=== PATIENT | male | born 2005 | race Caucasian/White ===

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

== ENCOUNTER 2023-04-09 16:07 | Emergency (ER) | payer MEDICAID, OTHER ==
--- NOTE | 2023-04-09 16:09 | ERPHSYRPT ---
- History of Present Illness Time Seen by Provider: 04/09/23 16:09 Source: patient Exam Limitations: no limitations Physician History: This is a 17-year-old white male patient who presents with 2-day history of worsening sore throat. He has no known exposures to individuals similar symptoms. He has not had a fever. He denies chills. He denies cough. He denies chest pain and he denies shortness of breath. He has not used any treatment. Timing/Duration: gradual onset, days Severity: mild (2 days ago) ENT Location: throat Prearrival Treatment: no prearrival treatment Modifying Factors: Improves With: other (Swallowing hurts) Associated Symptoms: sore throat, No ear pain (R), No ear pain (L), No cough, No fever, No chills Allergies/Adverse Reactions: No Known Drug Allergies Allergy (Verified 09/24/20 17:08) Hx Tetanus, Diphtheria Vaccination/Date Given: Yes Hx Influenza Vaccination/Date Given: Yes Hx Pneumococcal Vaccination/Date Given: No Travel Risk - International Travel Have you traveled outside of the country in past 3 weeks: No - Coronavirus Screening Are you exhibiting any of the following symptoms?: No Close contact with a COVID-19 positive Pt in past 14-21 Days: No - Review of Systems Constitutional: No Symptoms Eyes: No Symptoms Ears, Nose, & Throat: Throat Pain Respiratory: No Symptoms Cardiac: No Symptoms (When swallowing) Abdominal/Gastrointestinal: No Symptoms Genitourinary Symptoms: No Symptoms Musculoskeletal: No Symptoms Skin: No Symptoms Neurological: No Symptoms Psychological: No Symptoms Endocrine: No Symptoms Hematologic/Lymphatic: No Symptoms Immunological/Allergic: No Symptoms All Other Systems: Reviewed and Negative - Past Medical History Pertinent Past Medical History: No Neurological History: No Pertinent History ENT History: No Pertinent History Cardiac History: No Pertinent History Respiratory History: No Pertinent History GI Medical History: No Pertinent History - Past Surgical History Past Surgical History: No - Social History Smoking Status: Never smoker Exposure to second hand smoke: Yes Drug Use: none Patient Lives Alone: No - Nursing Vital Signs Nursing Vital Signs: Initial Vital Signs Temperature 98.1 F 04/09/23 16:10 Pulse Rate 77 04/09/23 16:10 Respiratory Rate 20 04/09/23 16:10 Blood Pressure 121/73 04/09/23 16:10 O2 Sat by Pulse Oximetry 97 04/09/23 16:10 Pain Scale Pain Intensity 6 - Physical Exam General Appearance: no apparent distress, alert Eye Exam: bilateral eye: normal inspection, PERRL, EOMI Ear Exam: bilateral ear: auricle normal Nasal Exam: normal inspection Throat Exam: moist mucus membranes, pharynx swelling (Mild with mild redness present), uvula swelling (Mild with mild redness) Neck Exam: normal inspection, non-tender, supple, full range of motion Cardiovascular/Respiratory Exam: chest non-tender, normal breath sounds, regular rate/rhythm, heart sounds normal, no respiratory distress Abdominal Exam: non-tender, spleenomegaly Neurologic Exam: alert, oriented x 3, cooperative, normal mood/affect, nml cerebellar function, nml station & gait, sensation nml Skin Exam: normal color, warm, dry SpO2 Interpretation: normal O2 Delivery: Room Air - Course Nursing assessment & vital signs reviewed: Yes Lab/Rad Data: Laboratory Results 04/09/23 Range/Units 16:28 Influenza Type A Ag NEGATIVE (NEGATIVE) Influenza Type B Ag NEGATIVE (NEGATIVE) RSV (PCR) NEGATIVE (NEGATIVE) SARS-CoV-2 (PCR) NEGATIVE (NEGATIVE) Group A Strep Antibody DETECTED (NEGATIVE) - Progress Progress: improved, re-examined Progress Note: 04/09/23 16:38 This patient's medical issue is 1 of low complexity. The level complexity and the work-up performed is based on review of the patient's past medical history, review of the patient's medication list, review of the patient's drug allergy list, history of present illness and physical findings on examination. The work-up in this patient will be viral swabs as well as a swab for rapid group A strep study. Patient will be given instructions to drink plenty of fluids and use Tylenol and ibuprofen for pain and fever control. If the group A strep test returns positive we will add antibiotics to the regimen. I will add prednisone 5 mg orally 3 times a day for the next 4 days even if the group A strep test is negative. 04/09/23 16:56 The viral studies are pending. The patient has positive group a strep detected Counseled pt/family regarding: lab results, diagnosis, need for follow-up Medical Desision Making - Diagnostic Testing Diagnostic test were ordered, analyzed, and reviewed by me: Yes - Risk of complications The pt has a mod risk of morbidity or mortality based on: Need for prescription drug management - Departure Departure Disposition: Home Clinical Impression: Strep pharyngitis Condition: Stable Critical Care Time: No Referrals: DOCTOR,NO FAMILY [Primary Care Provider] - Follow up/PCP as directed Additional Instructions: Drink plenty of fluids. Take your medication as prescribed. Use Tylenol and ibuprofen for pain and fever control. Follow-up with your primary care provider for further evaluation management and for persistent symptoms. Prescriptions: Amoxicillin 500 mg Cap [Amoxil 500 mg] 500 mg PO TID #30 cap Prednisone 5 mg [Deltasone 5 mg] 5 mg PO TID #12 tablet
[2023-04-09 16:16] VITALS: TEMP 98.1
[2023-04-09 16:53] LABS: Group A Strep DETECTED (NEGATIVE)
[2023-04-09 17:06] LABS: INFLUENZA A NEGATIVE (NEGATIVE); INFLUENZA B NEGATIVE (NEGATIVE); RESPIRATORY SYNCTIAL VIRUS NEGATIVE (NEGATIVE); SARS-CoV-2 Xpert Express NEGATIVE (NEGATIVE)
[2023-04-09 17:29] VITALS: BP 118/68; PULSE 73; RESP 18; O2SAT 98
== END 2023-04-09 17:32 | disposition home or self-care (01) ==
LOC: ED 16:07
DX: J02.0 Streptococcal pharyngitis (principal); Z79.52 Long term (current) use of systemic steroids
CPT/HCPCS: 0241U; 87651; 99282

== ENCOUNTER 2024-09-12 21:31 | Emergency (ER) | payer OTHER ==
[2024-09-12 21:37] VITALS: TEMP 98.4
--- NOTE | 2024-09-12 21:38 | ERPHSYRPT ---
- History of Present Illness Time Seen by Provider: 09/12/24 21:38 Source: patient, family Exam Limitations: no limitations Physician History: This is a 18-year-old white male patient who [facility] [email or web address] per his report and there was a plastic item in the ice cream that cut the inner buccal mucosa on the right side as well as abrasion the lateral aspect of the right side of his tongue. He had actually choked on a plastic item and was able to expel it from his oral cavity Timing/Duration: abrupt onset Severity: mild ENT Location: mouth Prearrival Treatment: no prearrival treatment Modifying Factors: Improves With: activity Associated Symptoms: sore throat, other (Pain in the right lateral aspect of the tongue and the right inner buccal mucosa) Allergies/Adverse Reactions: No Known Drug Allergies Allergy (Verified 09/12/24 21:37) Home Medications: No Reportable Medications [No Reported Medications] 09/12/24 [History] Hx Tetanus, Diphtheria Vaccination/Date Given: Yes Hx Influenza Vaccination/Date Given: Yes Hx Pneumococcal Vaccination/Date Given: No Travel Risk - International Travel Have you traveled outside of the country in past 3 weeks: No - Emerging Infectious Disease Are you exhibiting symptoms associated with any current EIDs: No - Review of Systems Constitutional: No Symptoms Eyes: No Symptoms Ears, Nose, & Throat: Mouth Pain (Lateral aspect right side tongue and right inner buccal mucosa tenderness), Throat Pain Respiratory: No Symptoms Cardiac: No Symptoms Abdominal/Gastrointestinal: No Symptoms Genitourinary Symptoms: No Symptoms Musculoskeletal: No Symptoms Skin: No Symptoms Neurological: No Symptoms Psychological: No Symptoms Endocrine: No Symptoms Hematologic/Lymphatic: No Symptoms Immunological/Allergic: No Symptoms All Other Systems: Reviewed and Negative - Past Medical History Pertinent Past Medical History: No Neurological History: No Pertinent History ENT History: No Pertinent History Cardiac History: No Pertinent History Respiratory History: No Pertinent History GI Medical History: No Pertinent History - Past Surgical History Past Surgical History: No - Social History Smoking Status: Never smoker Exposure to second hand smoke: Yes Drug Use: none Patient Lives Alone: No - Nursing Vital Signs Nursing Vital Signs: Initial Vital Signs Temperature 98.4 F 09/12/24 21:36 Pulse Rate 87 09/12/24 21:36 Respiratory Rate 18 09/12/24 21:36 Blood Pressure 149/91 09/12/24 21:36 O2 Sat by Pulse Oximetry 99 01/03/25 21:36 Pain Scale Pain Intensity 8 - Physical Exam General Appearance: no apparent distress, alert, anxiety Eye Exam: bilateral eye: normal inspection, PERRL, EOMI Ear Exam: bilateral ear: auricle normal Nasal Exam: normal inspection Throat Exam: moist mucus membranes (Visible abrasions inner buccal mucosa right side. Faint abrasions right lateral tongue), No uvula swelling, No voice changes Neck Exam: normal inspection, non-tender, supple, full range of motion, trachea midline Cardiovascular/Respiratory Exam: chest non-tender, no respiratory distress Abdominal Exam: non-tender Neurologic Exam: alert, oriented x 3, cooperative, iron pourer II-XII nml as tested, nml cerebellar function, nml station & gait, sensation nml Skin Exam: normal color, warm, dry SpO2 Interpretation: normal SpO2: 99 O2 Delivery: Room Air - Course Nursing assessment & vital signs reviewed: Yes - Progress Progress: improved, pain not gone completely Progress Note: 09/12/24 21:48 My medical decision making and the assignment of low complexity to this patient's medical issue today is based on review of the patient's past medical history, review of the patient's medication list, review the patient drug allergy list, history present illness and physical findings on examination. The workup in this patient does not necessitate lab or radiographic studies. We will provide the patient with rinse gargle and spit viscous lidocaine for pain control. Differential diagnosis includes but is not limited to lingual abrasions and buccal mucosal abrasions Counseled pt/family regarding: diagnosis, need for follow-up Medical Desision Making - Independent Historian Additional History obtained from: Relative/friend - Diagnostic Testing Diagnostic test were ordered, analyzed, and reviewed by me: No - Risk of complications Minimal Risk: Minimal risk of morbidity - Departure Departure Disposition: Home Clinical Impression: Encounter for medical screening examination, Abrasion of buccal mucosa, Abrasion of tongue Condition: Stable Critical Care Time: No Referrals: DOCTOR,NO FAMILY [Primary Care Provider] - Follow up/PCP as directed Additional Instructions: Rinse gargle and spit using scope or other mouthwash. May also use Tylenol and ibuprofen for pain. Follow-up with your primary care provider on 09/15/2024, for further evaluation and management
[2024-09-12] MEDS ORDERED: XYLOCAINE VISCOUS 2% 15 ML CUP ONE (21:51)
[2024-09-12] MEDS: XYLOCAINE VISCOUS 2% 15 ML CUP PO ONE (21:59)
[2024-09-12 22:07] VITALS: BP 123/81; PULSE 83; RESP 16; O2SAT 98
== END 2024-09-12 22:21 | disposition home or self-care (01) ==
LOC: ED 21:31
DX: S00.512A Abrasion of oral cavity, initial encounter (principal); W26.9XXA Contact with unspecified sharp object(s), initial encounter; Y92.511 Restaurant or cafe as the place of occurrence of the external cause
CPT/HCPCS: 99281; A9270-GY

== ENCOUNTER 2025-04-05 21:17 | Emergency (ER) | payer OTHER ==
[2025-04-05 21:29] VITALS: TEMP 97; O2SAT 100
[2025-04-05] MEDS ORDERED: KEFLEX 500 MG ONE (21:42)
[2025-04-05] MEDS ORDERED: DELTASONE 20 MG ONE (21:42)
[2025-04-05] MEDS: DELTASONE 20 MG PO ONE (21:43)
[2025-04-05] MEDS: KEFLEX 500 MG PO ONE (21:43)
--- NOTE | 2025-04-05 21:43 | ERPHSYRPT ---
- History of Present Illness Time Seen by Provider: 04/05/25 21:35 Source: patient, cnc mechanic Patient Subjective Stated Complaint: c/o spider bite Triage Nursing Assessment: patient brought self to ED with c/o spider bite that occurred 30 minutes ago. patient stated he saw the spider but was unable to kill it. patient has a 6cm x 9cm reddenned area on the medial side of left calf. patient rates pain 4/10 at this time, gait steady, vitals wnl, patient doesn't appear to be in any distress at this time. Physician History: This is a 19-year-old white male patient who arrives 30 minutes after a "spider bite to the medial aspect of his left calf. Patient had something similar approximately 3 weeks ago he did capture the spider and it did look like a brown recluse. Today, he has healed the right lower extremity spider bite. 30 minutes ago, he did notice another spider bite him on the medial aspect of his left calve. He did not get a good look at the spider but it was different than the one from 3 weeks ago. The Keflex/prednisone regimen provided to him 3 weeks ago worked well for him. Timing/Duration: today Quality: burning Severity: mild Location: extremities (Left lower leg) Possible Causes: insect bite Associated Symptoms: denies symptoms Allergies/Adverse Reactions: No Known Drug Allergies Allergy (Verified 04/05/25 21:29) Hx Tetanus, Diphtheria Vaccination/Date Given: Yes Hx Influenza Vaccination/Date Given: Yes Hx Pneumococcal Vaccination/Date Given: No Travel Risk - International Travel Have you traveled outside of the country in past 3 weeks: No - Emerging Infectious Disease Are you exhibiting symptoms associated with any current EIDs: No - Review of Systems Constitutional: No Symptoms Eyes: No Symptoms Ears, Nose, & Throat: No Symptoms Respiratory: No Symptoms Cardiac: No Symptoms Abdominal/Gastrointestinal: No Symptoms Genitourinary Symptoms: No Symptoms Musculoskeletal: No Symptoms Skin: Cellulitis (Localized medial aspect left calf) Neurological: No Symptoms Psychological: No Symptoms Endocrine: No Symptoms Hematologic/Lymphatic: No Symptoms Immunological/Allergic: No Symptoms All Other Systems: Reviewed and Negative - Past Medical History Pertinent Past Medical History: No Neurological History: No Pertinent History ENT History: No Pertinent History Cardiac History: No Pertinent History Respiratory History: No Pertinent History Endocrine Medical History: No Pertinent History Musculoskeletal History: No Pertinent History GI Medical History: No Pertinent History History: No Pertinent History Psycho-Social History: No Pertinent History Male Reproductive Disorders: No Pertinent History - Past Surgical History Past Surgical History: No Neuro Surgical History: No Pertinent History Cardiac: No Pertinent History Respiratory: No Pertinent History Gastrointestinal: No Pertinent History Genitourinary: No Pertinent History Musculoskeletal: No Pertinent History Male Surgical History: No Pertinent History - Social History Smoking Status: Never smoker Exposure to second hand smoke: No Drug Use: none - Social Determinants of Health Will the patient participate in the screening: Yes Do you worry about a steady place to live?: No Do you have any problems with any of the following?: No known problems In the past 12 months,have you had to go without utilities?: No Transportation Issues: No Has anyone in your support network made you feel unsafe?: No Have you or anyone in your house had to go w/o enough food: No - Nursing Vital Signs Nursing Vital Signs: Initial Vital Signs Temperature 97 F 04/05/25 21:20 Pulse Rate 61 04/05/25 21:20 Respiratory Rate 18 04/05/25 21:20 Blood Pressure 139/86 04/05/25 21:20 O2 Sat by Pulse Oximetry 100 04/05/25 21:20 Pain Scale Pain Intensity 4 - Physical Exam General Appearance: no apparent distress, alert Eye Exam: PERRL/EOMI, eyes nml inspection Ears, Nose, Throat Exam: normal ENT inspection, moist mucous membranes Neck Exam: normal inspection, non-tender, supple, full range of motion Respiratory Exam: airway intact, No chest tenderness, No respiratory distress Cardiovascular Exam: regular rate/rhythm, normal heart sounds, normal peripheral pulses Gastrointestinal/Abdomen Exam: soft, normal bowel sounds, No tenderness Rectal Exam: not done Back Exam: normal inspection, normal range of motion, No CVA tenderness, No vertebral tenderness Extremity Exam: normal range of motion, pelvis stable, swelling (With associated localized redness/cellulitis medial aspect skin of left calf), tenderness (Left lower leg medial aspect calf) Neurologic Exam: alert, oriented x 3, cooperative, application assistant II-XII nml as tested, normal mood/affect, nml cerebellar function, nml station & gait, sensation nml Skin Exam: other (Cellulitis see above extremity section) Lymphatic Exam: No adenopathy SpO2 Interpretation: normal SpO2: 100 O2 Delivery: Room Air - Course Nursing assessment & vital signs reviewed: Yes - Progress Progress: unchanged Progress Note: 04/05/25 21:42 My medical decision making and the assignment of low complexity of this patient's medical issue today is based on review of the patient's past medical history, review of the patient's medication list, review the patient drug allergy list, history present illness and physical findings on examination. The workup in this patient does not necessitate laboratory radiographic studies. Differential diagnosis includes but is not limited to spider bite, cellulitis, contact dermatitis, allergic reaction 04/05/25 21:43 Counseled pt/family regarding: diagnosis, need for follow-up Medical Desision Making - Diagnostic Testing Diagnostic test were ordered, analyzed, and reviewed by me: No - Risk of complications Low Risk: Low risk of morbidity from additional dx testing or treatment The pt has a mod risk of morbidity or mortality based on: Need for prescription drug management - Departure Departure Disposition: Home Clinical Impression: Cellulitis, Spider bite Condition: Stable Critical Care Time: No Referrals: DOCTOR,NO FAMILY [Primary Care Provider, UNKNOWN] - Follow up/PCP as directed Additional Instructions: Keep the site clean daily with soap and water. Take your medications as prescribed. Call your primary care provider tomorrow, 04/06/2025, to make arrangements for follow-up appointment for further evaluation management. Prescriptions: Prednisone 10 mg [Deltasone 10 mg] 10 mg PO TID #12 tablet Cephalexin Mh 500 mg [Keflex 500 mg] 500 mg PO TID #21 cap
[2025-04-05 21:49] VITALS: BP 132/76; PULSE 67; RESP 16
== END 2025-04-05 21:56 | disposition home or self-care (01) ==
LOC: ED 21:17
DX: S80.862A Insect bite (nonvenomous), left lower leg, initial encounter (principal); L03.116 Cellulitis of left lower limb; W57.XXXA Bitten or stung by nonvenomous insect and other nonvenomous arthropods, initial encounter; Z79.52 Long term (current) use of systemic steroids; Z79.899 Other long term (current) drug therapy